=== PATIENT | female | born 1945 | race Caucasian/White ===

== ENCOUNTER → 2018-09-11 | Outpatient (CLI) | payer MEDICARE, BC ==
[~2018-09-11] MED LIST: CAR6.25 PO; CELE-1 PO; EXEN2VIA SQ; LOSA100T69 PO; METF-452 PO; OLME1TAB63 PO; POTA20TA85 PO; ROSU5TAB8 PO
--- NOTE | 2018-09-11 17:23 | RADIOLOGY IMAGING REPORT ---
FACILITY: [facility] - [place] PATIENT NAME: LITO CONRAD : [id number] MR: [id number] V: [id number] EXAM DATE: [id number] ORDERING PHYSICIAN: LEYDA CAMPBELL TECHNOLOGIST: Rosette Jiménez PROCEDURE:BILATERAL DIGITAL SCREENING MAMMOGRAM WITH CAD ASSISTED INTERPRETATION & 3D TOMOSYNTHESIS COMPARISON:Prior mammograms dated 11/24/14, 11/18/13, 08/15/12 INDICATIONS:SCREENING FINDINGS: A small amount of fibroglandular tissue is seen throughout the breasts. In the approximate 12 o'clock position of the Left breast junction of the middle & posterior third there is a focal area of increased density with small microcalcifications. It appears more prominent when compared to the prior studies. Spot magnification view recommended for further evaluation. DIAGNOSTIC CATEGORY 0--INCOMPLETE: NEED ADDITIONAL IMAGING EVALUATION. RECOMMENDATIONS: ADDITIONAL MAMMOGRAPHIC VIEWS REQUIRED: LEFT BREAST. Additional views of the Left breast recommended as described. IMPRESSION: BIRADS 0: Incomplete, need additional imaging. Dictated by: Juani Honeycutt M.D. on 09/11/2018 at 9:13 Transcribed by: RAGHAV on 09/11/2018 at 9:38 Approved by: Juani Honeycutt M.D. on 09/11/2018 at 17:22 [facility]
== END ==
LOC: MAMO 01:22
PROVIDERS: ATTEND Family Medicine
DX: R92.2 Inconclusive mammogram (principal)
CPT/HCPCS: 77063; 77067

== ENCOUNTER → 2018-09-19 | Outpatient (CLI) | payer MEDICARE, BC ==
[~2018-09-19] MED LIST changes: +LIDOCAINE MPF 1% 5 ML VIAL ONE
--- NOTE | 2018-09-19 16:01 | RADIOLOGY IMAGING REPORT ---
FACILITY: [facility] - [place] PATIENT NAME: LITO CONRAD : [id number] MR: [id number] V: [id number] EXAM DATE: [id number] ORDERING PHYSICIAN: LEYDA CAMPBELL TECHNOLOGIST: Rosette Jiménez PROCEDURE:LEFT DIGITAL DIAGNOSTIC MAMMOGRAM WITH CAD ASSISTED INTERPRETATION & 3D TOMOSYNTHESIS COMPARISON:Prior mammograms 09/11/18, 11/24/14, 10/19/13, 08/15/12. INDICATIONS:FURTHER EVAL FINDINGS: The patient returned for Spot magnification views in the Left CC & MLO projections. The focal area of increased density with small microcalcifications is really identified in the 12 o'clock position. Today's Left breast Ultrasound demonstrated a 6.9 x 8.5 x 4.9mm ovoid hypoechoic mass with internal calcifications in the 12:30 position of the Left breast which would account for this finding. Ultrasound guided core biopsy is recommended. DIAGNOSTIC CATEGORY 4--SUSPICIOUS FOR MALIGNANCY. RECOMMENDATIONS: ULTRASOUND-GUIDED CORE BIOPSY: LEFT BREAST. IMPRESSION: BIRADS 4: Suspicious for malignancy. Ultrasound guided core biopsy of the hypoechoic nodule with internal calcifications in the 12:30 position of the Left breast is recommended. Dictated by: Juani Honeycutt M.D. on 09/19/2018 at 15:02 Transcribed by: FIX on 09/19/2018 at 15:19 Approved by: Juani Honeycutt M.D. on 09/19/2018 at 16:00 [facility]
--- NOTE | 2018-09-19 16:01 | RADIOLOGY IMAGING REPORT ---
FACILITY: [facility] PATIENT NAME: LITO CONRAD : [id number] MR: [id number] V: [id number] EXAM DATE: [id number] ORDERING PHYSICIAN: LEYDA CAMPBELL TECHNOLOGIST: Aly Galloway RDMS, SUDHA PROCEDURE:US LEFT BREAST COMPARISON:Today's mammogram. INDICATIONS:FURTHER EVAL FINDINGS: In the 12:30 position of the Left breast there is an ovoid hypoechoic nodule measuring approximately 6.9 x 8.5 x 4.9mm with internal calcifications. This accounts for the recent mammographic findings. Ultrasound guided core biopsy is recommended. DIAGNOSTIC CATEGORY 4--SUSPICIOUS FOR MALIGNANCY. RECOMMENDATIONS: ULTRASOUND-GUIDED CORE BIOPSY: LEFT BREAST. IMPRESSION: BIRADS 4: Suspicious for malignancy. Ultrasound guided core biopsy of the hypoechoic nodule with internal calcifications in the 12:30 position of the Left breast is recommended. Dictated by: Juani Honeycutt M.D. on 09/19/2018 at 15:03 Transcribed by: FIX on 09/19/2018 at 15:26 Approved by: Juani Honeycutt M.D. on 09/19/2018 at 16:00 [facility]
[2018-09-19 16:44] LABS: INR 0.96
== END ==
LOC: MAMO 03:31
PROVIDERS: ATTEND Family Medicine
DX: R92.2 Inconclusive mammogram (principal)
CPT/HCPCS: 36415; 77061; 77065; 85610

== ENCOUNTER → 2018-09-22 | Outpatient (CLI) | payer MEDICARE, BC ==
[~2018-09-22] MED LIST changes: -LIDOCAINE MPF 1% 5 ML VIAL ONE
--- NOTE | 2018-09-23 08:11 | RADIOLOGY IMAGING REPORT ---
FACILITY: [facility] - [place] PATIENT NAME: LITO CONRAD : [id number] MR: [id number] V: [id number] EXAM DATE: [id number] ORDERING PHYSICIAN: LEYDA CAMPBELL TECHNOLOGIST: Aly Galloway RDMS, RDINDIA PROCEDURE: BIOPSY LEFT BREAST COMPARISON: None. INDICATIONS: Hypoechoic mass 12:30 position of the Left breast and abnormal mammogram. FINDINGS: Informed consent was obtained. The patient's Left breast was prepped and draped in the usual sterile fashion. Local anesthesia was accomplished with 1% lidocaine. Utilizing sonographic guidance (3) 12 Gauge core biopsies were obtained through the ovoid hypoechoic mass in the 12:30 position of the Left breast. The samples were placed in formalin and sent to the laboratory for evaluation. A biopsy clip was placed in the biopsy site. The post biopsy mammogram again demonstrated the ovoid area of increased density with microcalcifications in the approximate 12 o'clock of the Left breast however the biopsy clip does not correlate with these calcifications therefore biopsy is recommended. Sense these calcifications are so far posterior surgical excision coordinated with mammographically guided hook wire placement is recommended. DIAGNOSTIC CATEGORY 4--SUSPICIOUS FOR MALIGNANCY. RECOMMENDATIONS: SURGICAL BIOPSY COORDINATED WITH MAMMOGRAM HOOKWIRE LOCALIZATION: LEFT BREAST. IMPRESSION: BIRADS 4: Suspicious for malignancy. 1. Successful ultrasound guided biopsy of the ovoid mass in the 12:30 position of the Left breast. The post biopsy mammogram however demonstrated the post biopsy clip to be located in a different location from the previously noted microcalcifications in the 12 o'clock position of the Left breast. Therefore the sonographic findings did not correlate with the mammographic findings. Surgical excision of the microcalcifications coordinated with mammographically guided hook wire localization is recommended. 2. These findings were discussed with the patient following her biopsy today. Dictated by: Juani Honeycutt M.D. on 09/22/2018 at 15:26 Transcribed by: SEVEN on 09/22/2018 at 15:55 Approved by: Juani Honeycutt M.D. on 09/23/2018 at 8:09 [facility]
--- NOTE | 2018-09-23 08:11 | RADIOLOGY IMAGING REPORT ---
FACILITY: [facility] PATIENT NAME: LITO CONRAD : [id number] MR: [id number] V: [id number] EXAM DATE: [id number] ORDERING PHYSICIAN: LEYDA CAMPBELL TECHNOLOGIST: Aly Galloway RDMS, RDINDIA PROCEDURE: BIOPSY LEFT BREAST COMPARISON: None. INDICATIONS: Hypoechoic mass 12:30 position of the Left breast and abnormal mammogram. FINDINGS: Informed consent was obtained. The patient's Left breast was prepped and draped in the usual sterile fashion. Local anesthesia was accomplished with 1% lidocaine. Utilizing sonographic guidance (3) 12 Gauge core biopsies were obtained through the ovoid hypoechoic mass in the 12:30 position of the Left breast. The samples were placed in formalin and sent to the laboratory for evaluation. A biopsy clip was placed in the biopsy site. The post biopsy mammogram again demonstrated the ovoid area of increased density with microcalcifications in the approximate 12 o'clock of the Left breast however the biopsy clip does not correlate with these calcifications therefore biopsy is recommended. Sense these calcifications are so far posterior surgical excision coordinated with mammographically guided hook wire placement is recommended. DIAGNOSTIC CATEGORY 4--SUSPICIOUS FOR MALIGNANCY. RECOMMENDATIONS: SURGICAL BIOPSY COORDINATED WITH MAMMOGRAM HOOKWIRE LOCALIZATION: LEFT BREAST. IMPRESSION: BIRADS 4: Suspicious for malignancy. 1. Successful ultrasound guided biopsy of the ovoid mass in the 12:30 position of the Left breast. The post biopsy mammogram however demonstrated the post biopsy clip to be located in a different location from the previously noted microcalcifications in the 12 o'clock position of the Left breast. Therefore the sonographic findings did not correlate with the mammographic findings. Surgical excision of the microcalcifications coordinated with mammographically guided hook wire localization is recommended. 2. These findings were discussed with the patient following her biopsy today. Dictated by: Juani Honeycutt M.D. on 09/22/2018 at 15:26 Transcribed by: SEVEN on 09/22/2018 at 15:55 Approved by: Juani Honeycutt M.D. on 09/23/2018 at 8:09 [facility]
== END ==
LOC: MAMO 01:13
PROVIDERS: ATTEND Family Medicine
DX: N63.22 Unspecified lump in the left breast, upper inner quadrant (principal); R92.1 Mammographic calcification found on diagnostic imaging of breast; N64.1 Fat necrosis of breast
CPT/HCPCS: 19083; 88305; 88344; J2001; 77061; 77065

== ENCOUNTER → 2018-10-21 | Outpatient (CLI) | payer MEDICARE, BC ==
[~2018-10-21] MED LIST changes: +LOSA-57 PO
--- NOTE | 2018-10-22 10:52 | EKG ---
FACILITY: [facility] PATIENT NAME: LITO CONRAD : [id number] MR: [id number] V: [id number] EXAM DATE: ORDERING PHYSICIAN: LEYDA SANTANA TECHNOLOGIST: ELIANA Test Reason : PRE-OP Blood Pressure : / mmHG Vent. Rate : 063 BPM Atrial Rate : 063 BPM P-R Int : 176 ms QRS Dur : 082 ms QT Int : 420 ms P-R-T Axes : 054 055 065 degrees QTc Int : 429 ms Normal sinus rhythm Normal ECG When compared with ECG of 06-JUL-2014 17:29, No significant change was found Referred By: ESTHER Confirmed By:
== END ==
LOC: LAB 17:12
PROVIDERS: ATTEND Surgery
DX: E11.9 Type 2 diabetes mellitus without complications (principal)
CPT/HCPCS: 36415; 82310; 82374; 82435; 82565; 82947; 83036; 84132; 84295; 84520

== ENCOUNTER 2018-11-06 03:09 | Day surgery (SDC) | payer MEDICARE, BC ==
[~2018-11-06] VITALS: Ht 170.2 cm; Wt 82.6 kg
[~2018-11-06 03:09] MED LIST changes: +CARV12.578 PO; -LOSA100T69 PO; +LOSA100T75 PO
[2018-11-06] MEDS ORDERED: ONDANSETRON 4 MG/2 ML VIAL ONE (11:13)
[2018-11-06] MEDS ORDERED: LIDOCAINE MPF 1% 5 ML VIAL ONE (11:13)
[2018-11-06] MEDS ORDERED: PROPOFOL EMUL(*) 10MG/ML 20 ML 20 ML ONE ×2 (11:13→13:39)
[2018-11-06] MEDS ORDERED: fentaNYL CITR 100 MCG/2 ML AMP ONE (11:13)
[2018-11-06 11:22] VITALS: BP 153/90
[2018-11-06] MEDS ORDERED: PROPOFOL EMUL(*) 10MG/ML 20 ML 40 ML ONE (11:28)
[2018-11-06] MEDS ORDERED: ceFAZolin(*) 2GM/D5W 50ML 50 ML IVPB ONE (12:15)
[2018-11-06] MEDS ORDERED: DEXAMETHASONE SOD 4 MG/ML VIAL ONE (12:46)
[2018-11-06] MEDS ORDERED: ROPIVACAINE 0.5% 20 ML VIAL ONE (13:09)
[2018-11-06] MEDS ORDERED: LIDOCAINE/SOD BICARB 8.4% SYR ID ONE (13:10)
[2018-11-06] MEDS ORDERED: MIDAZOLAM 2 MG/2 ML VIAL IVP PRN (13:10)
[2018-11-06] MEDS ORDERED: FAMOTIDINE 20 MG TAB PO ONE (13:10)
[2018-11-06] MEDS ORDERED: NORMOSOL R SOLN(*) 1000 ML BAG 1,000 ML IV PRN (13:20)
[2018-11-06] MEDS ORDERED: DOCU-416 PO (14:06)
[2018-11-06] MEDS ORDERED: OXYC-854 PO (14:06)
--- NOTE | 2018-11-06 14:08 | Short(Outpt) Discharge Summary ---
Discharge Summary Reason for Hosp/Final Diag: (1) Microcalcification of left breast on mammogram Status: Chronic Hospital Course & Plan: Left breast, wire-guided, lesion excision completed without problems. Departure Discharge to: Home, Self Care Discharge Instructions Home Meds Active Scripts Docusate Sodium (COLACE) 100 Mg Capsule, 1 CAP PO DAILY, #30 CAP 0 Refills TAKE WITH A FULL GLASS OF WATER Prov:LEYDA SANTANA MD 11/06/18 Oxycodone Hcl/Acet 5/325 Mg (ENDOCET 5-325 TABLET) 1 Each Tablet, 1 TAB PO Q4H PRN for PAIN, #20 TAB 0 Refills Prov:LEYDA SANTANA MD 11/06/18 Reported Medications Carvedilol (CARVEDILOL) 12.5 Mg Tablet, 12.5 MG PO BID, #10 TAB 10/23/18 Exenatide Microspheres (BYDUREON) 2 Mg Vial, 2 MG SQ Q7DAY, VIAL 10/21/18 Losartan/Hydrochlorothiazide (LOSARTAN-HCTZ 100-12.5 MG TAB) 1 Each Tablet, 1 EACH PO QDAY 10/21/18 Celecoxib (CELEBREX) 200 Mg Capsule, 200 MG PO QDAY PRN for PAIN, CAPSULE 09/24/17 Metformin Hcl (METFORMIN HCL) 1,000 Mg Tablet, 1 TAB PO BID TAKE ONE TABLET BY MOUTH TWO TIMES A DAY 07/06/14 Rosuvastatin Calcium (CRESTOR) 5 Mg Tablet, 5 MG PO QDAY 07/06/14 Follow up Referrals: General Surgery - 11/26/18 @ Surgery, General with LEYDA SANTANA MD You have a follow up appointment scheduled with Dr. Santana on 11/26/18, at 4:00pm. Diet: Regular Activity: As Tolerated Special Instructions: You may remove the white surgical dressing on 11/08/18, then you can shower. After showering, leave the incision open to air but leave the steristrips in place until they fall off on their own. Do not immerse the incision for 2 weeks. LEYDA SANTANA MD Nov 06, 2018 14:08
--- NOTE | 2018-11-06 14:13 | Post Operative Progress Note ---
Post Operative Progress Note Date: Nov 06, 2018 Time: 14:08 Surgeon: Len Dictation number: [id number] Anesthesia: LMA by Dr. Dubose Pre-Op Diagnosis: Left breast microcalcifications on mammogram Post-Op Diagnosis: GERARDO Findings: Microcalcifications seen in middle of specimen on specimen mammogram Procedure(s): Wire guided excision of left breast lesion Specimen Removed:(May be N/A): Left breast lesion Complications: None Fluids: See anesthesia record Estimated Blood Loss: Minimal Date OP Note Dictated: Nov 06, 2018 Time OP Note Dictated: 14:10 LEYDA SANTANA MD Nov 06, 2018 14:13
[2018-11-06 14:52] VITALS: BP 155/88
--- NOTE | 2018-11-06 14:57 | OPERATIVE REPORT 1 ---
EVENT DATE: November 06, 2018 SURGEON: Alan Harrington MD ANESTHESIOLOGIST: Primo Dubose MD ANESTHESIA: LMA PREOPERATIVE DIAGNOSIS Left breast microcalcification seen on mammogram. POSTOPERATIVE DIAGNOSIS Left breast microcalcification seen on mammogram. PROCEDURE PERFORMED Wire-guided excision of left breast lesion. COMPLICATIONS None. CONDITION Stable. BLOOD LOSS Minimal. INDICATIONS This is a 73-year-old female who was referred to me after a recent mammogram revealed some suspicious microcalcifications in the upper portion of her left breast at about 12 o'clock. These were fairly posterior and not amenable to stereotactic or ultrasound-guided biopsy. She was recommended for wire-guided excisional biopsy to determine if these represent a neoplasm or are benign. DESCRIPTION OF PROCEDURE The patient had gone to Radiology and had a wire placed preoperatively. I reviewed these images with the radiologist, and then the patient was brought to the operating room and placed supine on the operating table. LMA anesthesia was administered, and left breast was prepped and draped in a sterile fashion. A timeout was completed, and I marked the skin in the upper-outer quadrant of her left breast approximating where the lesion would be deep to, and I anesthetized the skin with 0.5% ropivacaine plain. I made an incision in the skin and dissected down through the dermis into the subcutaneous fat and then skewed my dissection toward the wire until I identified the wire and then pulled it into the wound. I then continued my dissection along the wire and then flared it out proximal to where the lesion is thought to be and then continue dissecting a cylinder of tissue around the wire all the way past the tip of the wire, and then the specimen was removed from the wound. I placed it on a grid and then brought it to mammography. I personally walked it over there, and we shot two images in 90 degrees from each other and could see the calcifications in the specimen adjacent to the wire, and it was in the middle of the specimen. I then went back to operating room, irrigated and dried the wound, closed the pocket with running 3-0 Vicryl sutures in two layers, and then the skin was closed with 4-0 Monocryl running subcuticular suture. Skin was cleaned and dried, and Steri-Strips were applied, followed by sterile surgical dressing. The patient was awakened, extubated in the operating room, and transported to the recovery room in stable condition having tolerated the procedure without any apparent problems. JENNY
[2018-11-06 15:26] VITALS: BP 160/82
[2018-11-06 15:29] VITALS: BP 161/78
== END 2018-11-06 14:52 | disposition home or self-care (01) ==
LOC: OR 03:09
PROVIDERS: ATTEND Surgery
DX: R92.0 Mammographic microcalcification found on diagnostic imaging of breast (principal); E11.9 Type 2 diabetes mellitus without complications; I10 Essential (primary) hypertension; Z79.84 Long term (current) use of oral hypoglycemic drugs
CPT/HCPCS: 19125; 19283; 36416; 82948; 88305; 88344; A9270; J1100; J2001; J2405; J2704; J2795; J3010; J0690

== ENCOUNTER 2018-12-04 13:59 | Outpatient (RCR) | payer MEDICARE, BC ==
[~2018-12-04 13:59] MED LIST changes: +DOCU-416 PO; +OXYC-854 PO
[2018-12-04 14:00] VITALS: BP 129/78
--- NOTE | 2018-12-05 03:22 | [facility] ONCOLOGY NOTE ---
EVENT DATE: December 04, 2018 REFERRING PHYSICIAN Alan Harrington MD PRIMARY CARE PROVIDER Alan Benitez MD REASON FOR CONSULTATION Evaluation and management of left breast DCIS. ONCOLOGY HISTORY Patient is a 73-year-old postmenopausal female who had an abnormal screening bilateral mammogram done on 11 September 2018, which showed increased density with small microcalcifications at 12 o'clock. On 19 September 2018, she had left diagnostic mammogram, which showed an abnormal area at 12 o'clock, so she had an ultrasound which showed an 8.5 mm hypoechoic mass with internal calcifications. On 22 September 2018, patient had ultrasonographic-guided biopsy of the left breast mass, but the pathology came back negative for malignancy. On 06 November 2018, patient had left breast wire localization lumpectomy, and pathology came back positive for DCIS with comedonecrosis, 2 mm in size, with negative microinvasion and negative margins. ER 86.8%, NV 89.6%. HER2/kiara was 2+. Ki-67 was 9.3%. PAST MEDICAL HISTORY 1. Osteoarthritis. 2. Type 2 diabetes. 3. Hypertension. 4. Hyperlipidemia. 5. Superficial thrombophlebitis x2. PAST SURGICAL HISTORY 1. Removal of bone spur from her right toe. 2. Tubal ligation. 3. Hysterectomy, but ovaries are intact. 4. Arthroscopic left knee surgery. 5. Right trigger thumb release. 6. Stem cell treatment for her arthritis. FAMILY HISTORY She has maternal aunts, cousins, and uncles with different types of cancer. Patient does not remember exactly everything. SOCIAL HISTORY Patient is with three children. 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 She is a never-smoker. She has one to two drinks per month, denies any abuse of illicit drugs. CURRENT MEDICATIONS 1. Carvedilol 12.5 mg twice daily. 2. Exenatide microspheres 2 mg every seven days. 3. Losartan/hydrochlorothiazide 100/12.5 mg tablet daily. 4. Celebrex 200 mg as needed for pain. 5. Metformin 1000 mg twice daily. 6. Crestor 5 mg daily. ALLERGIES SULFA TOPICALLY, which causes skin reaction. REVIEW OF SYSTEMS CONSTITUTIONAL: No appetite or weight change. No fever, chills or sweating. No recent infection. HEENT: Ears: No tinnitus or hearing problem. Nose: She has nasal allergies with runny nose. Throat: No sore throat or mouth ulcers. Eyes: No diplopia or visual changes. RESPIRATORY: No shortness of breath. No cough, expectoration or hemoptysis. CARDIOVASCULAR: No chest pain, orthopnea, or paroxysmal nocturnal dyspnea (PND). No edema. No palpitations. GASTROINTESTINAL: No nausea or vomiting. No diarrhea or constipation. No change in bowel movements. No heartburn or swallowing difficulties. No abdominal pain. No jaundice. No hematemesis, melena or rectal bleeding. GENITOURINARY: No hematuria or dysuria. MUSCULOSKELETAL: She has pain, especially in the knees and thumbs. NEUROLOGICAL: She has numbness in her thumbs. HEMATOLOGIC/LYMPHATIC: No bleeding or easy bruising. No weakness or fatigue. No enlarged lymph nodes. SKIN: No skin rash or lumps. PSYCHIATRIC: No anxiety or depression. PHYSICAL EXAMINATION GENERAL: Looks stable. Well-developed, well-nourished, and in no acute distress. VITAL SIGNS: Blood pressure 129/78, pulse 71 per minute, respirations 16 per minute, temperature 97, pulse oximetry 93% on room air. HEENT: Head: Atraumatic. No sinus tenderness to palpation. Eyes: No icterus or conjunctivitis. Mouth and throat: No oral thrush or mucositis. NECK: Supple. No cervical or supraclavicular lymphadenopathy. LUNGS: Clear to auscultation and percussion bilaterally. HEART: Regular rate and rhythm. No gallops, murmurs, clicks or rubs. ABDOMEN: Soft and lax. No tenderness. No hepatosplenomegaly. No masses. EXTREMITIES: No cyanosis, clubbing or edema. LYMPHATICS: No peripheral lymphadenopathy. NEUROLOGICAL: Conscious, alert and oriented times three. No focal motor or sensory deficits. PSYCHIATRIC: Mood and affect appear normal. SKIN: No skin rash, bruise or purpuric eruption. ASSESSMENT Ductal carcinoma in situ of the left breast, status post wire-localization lumpectomy done on 06 November 2018, and the pathology came back positive for 2 mm ductal carcinoma in situ with comedonecrosis, no microinvasion, and negative margins. ER 86.8%, NV 89.6%, HER2/kiara 2+, Ki-67 9.3%. I had a long discussion with the patient regarding further management. I talked to her about the role of adjuvant radiation therapy. As her ductal carcinoma in situ is positive for ER and NV receptors, I am planning to treat her with tamoxifen for five years, but because of her thrombophlebitis twice in the past, I am afraid patient could have an underlying hypercoagulable state and this would actually increase the risk of blood clotting with tamoxifen. I gave her also the option of treatment with Aromasin for five years, but this actually will cause worsening of osteoporosis or osteopenia if she has any. Patient is keen to go towards the Aromasin rather than tamoxifen. I am planning to see her after she finishes her radiation therapy with CBC, chemistry panel, vitamin D level, and DEXA scan, and will decide at that time about the treatment. Patient is aware treatment will be for five years, and she is aware also of the side effects of both drugs. PLAN 1. Continue followup. 2. Patient to return after the end of her radiation therapy with CBC, chem panel, 25-hydroxyvitamin D, and DEXA scan. 3. Patient to contact us for any new concerns or complaints. JENNY
== END 2019-01-21 07:10 | disposition home or self-care (01) ==
LOC: ONC 13:59
PROVIDERS: ATTEND Internal Medicine Hematology
DX: D05.12 Intraductal carcinoma in situ of left breast (principal); N95.2 Postmenopausal atrophic vaginitis; E11.9 Type 2 diabetes mellitus without complications; I10 Essential (primary) hypertension; Z17.0 Estrogen receptor positive status [ER+]; E78.5 Hyperlipidemia, unspecified; M19.90 Unspecified osteoarthritis, unspecified site
CPT/HCPCS: 99202

== ENCOUNTER 2019-01-15 10:00 | Outpatient (RCR) | payer MEDICARE, BC ==
--- NOTE | 2018-12-06 02:05 | ONCOLOGY CONSULTATION ---
EVENT DATE: December 06, 2018 REFERRING PHYSICIAN Alan Harrington M.D. DIAGNOSIS Left breast ductal carcinoma in situ. CHIEF COMPLAINT Discussion of breast radiotherapy. HISTORY OF PRESENT ILLNESS The patient is a 73-year-old female who was diagnosed with a left breast ductal carcinoma in situ after a routine screening mammogram on September 11, 2018, showed an increased density with small microcalcifications at the 12 o'clock position of the left breast, which was incomplete. Further mammographic imaging with spot compressions and mag views showed suspicious microcalcifications in this location, which was read as BI-RADS 4. This area was felt to be too deep to easily undergo stereotactic core biopsy and as such the patient was referred to Dr. Harrington, who performed a needle localized lumpectomy on her area of suspicious microcalcifications on November 06, 2018. The lumpectomy specimen revealed a 2 mm area of ductal carcinoma in situ with comedonecrosis. The margins were negative with the closet margin at 5 mm. The tumor was ER positive, 86.8% NC positive, 89.6% HER2 kiara 2+. The patient has met with Dr. Petty and discussed adjuvant endocrine therapy. She presents today to discuss definitive radiotherapy. PAST MEDICAL HISTORY 1. Left breast DCIS, see above. 2. Hypertension. 3. Type 2 diabetes. CURRENT MEDICATIONS 1. Docusate. 2. Oxycodone. 3. Carvedilol. 4. Xanatin. 5. Losartan. 6. Hydrochlorothiazide. 7. Celecoxib. 8. Metformin. 9. Rosuvastatin. ALLERGIES SULFA. FAMILY HISTORY Noncontributory. SOCIAL HISTORY No new data. PHYSICAL EXAMINATION VITAL SIGNS: Temperature 97.1, pulse 67, blood pressure 130/78, respiratory rate 16, O2 saturation 95% on room air. CONSTITUTIONAL: The patient is sitting comfortably in the chair, no acute distress. HEENT: Pupils are equal, round and reactive to light and accommodation. Extraocular movements are intact. There are no lesions of the oropharynx. NECK: Supple. Trachea is midline. LYMPHATICS: No palpable supraclavicular lymphadenopathy bilaterally. LUNGS: Clear to auscultation and percussion bilaterally. CARDIOVASCULAR: Regular rate and rhythm.. Normal S1 and S2. No murmurs, rubs or gallops. ABDOMEN: Soft, nontender with active bowel sounds. No hepatosplenomegaly. EXTREMITIES; No edema, clubbing or cyanosis. NEUROLOGIC: Patient is alert and oriented x3. Gait is normal. BREAST: Symmetric breasts with excellent cosmesis. The patient has a well- healed lumpectomy incision in the upper central portion of her left breast. There is no granulation tissue. The patient has no dominant breast masses bilaterally. PERFORMANCE STATUS: 90%. IMPRESSION The patient is a 73-year-old woman with a left breast ductal carcinoma in situ measuring 2 mm in size, status post wide local excision with negative margins. The patient presents today for discussion of breast radiotherapy. PLAN The patient was apprised of the standard of care for treatment of DCIS, which does include lumpectomy followed by whole breast radiotherapy. Whole breast radiotherapy has been shown to decrease tumor recurrence by approximately 75%. The side effect profile of radiotherapy was discussed at length with the patient. We additionally discussed various radiotherapy schedules including Italian fractionation. As the patient has travel plans in December, we will plan to proceed with Italian fractionation with 16 fractions to the whole breast followed by 3 fraction boost to the biopsy cavity. The patient has signed a written informed consent to undergo this treatment. She will undergo a CT scan today for planning simulation purposes. [facility]
--- NOTE | 2018-12-06 02:12 | PURVIANCE CONSULTATION ---
EVENT DATE: December 05, 2018 REFERRING PHYSICIAN Alan Harrington M.D. DIAGNOSIS Left breast ductal carcinoma in situ. CHIEF COMPLAINT Discussion of breast radiotherapy. HISTORY OF PRESENT ILLNESS The patient is a 73-year-old female who was diagnosed with a left breast ductal carcinoma in situ after a routine screening mammogram on September 11, 2018, showed an increased density with small microcalcifications at the 12 o'clock position of the left breast, which was incomplete. Further mammographic imaging with spot compressions and mag views showed suspicious microcalcifications in this location, which was read as BI-RADS 4. This area was felt to be too deep to easily undergo stereotactic core biopsy and as such the patient was referred to Dr. Harrington, who performed a needle localized lumpectomy on her area of suspicious microcalcifications on November 06, 2018. The lumpectomy specimen revealed a 2 mm area of ductal carcinoma in situ with comedonecrosis. The margins were negative with the closet margin at 5 mm. The tumor was ER positive, 86.8% GA positive, 89.6% HER2 kiara 2+. The patient has met with Dr. Petty and discussed adjuvant endocrine therapy. She presents today to discuss definitive radiotherapy. PAST MEDICAL HISTORY 1. Left breast DCIS, see above. 2. Hypertension. 3. Type 2 diabetes. CURRENT MEDICATIONS 1. Docusate. 2. Oxycodone. 3. Carvedilol. 4. Xanatin. 5. Losartan. 6. Hydrochlorothiazide. 7. Celecoxib. 8. Metformin. 9. Rosuvastatin. ALLERGIES SULFA. FAMILY HISTORY Noncontributory. SOCIAL HISTORY No new data. PHYSICAL EXAMINATION VITAL SIGNS: Temperature 97.1, pulse 67, blood pressure 130/78, respiratory rate 16, O2 saturation 95% on room air. CONSTITUTIONAL AND GENERAL APPEARANCE: The patient is sitting comfortably in the chair, no acute distress. HEENT: Pupils are equal, round and reactive to light and accommodation. Extraocular movements are intact. There are no lesions of the oropharynx. NECK: Supple. Trachea is midline. LYMPHATICS: No palpable supraclavicular lymphadenopathy bilaterally. LUNGS: Clear to auscultation and percussion bilaterally. CARDIOVASCULAR: Regular rate and rhythm.. Normal S1 and S2. No murmurs, rubs or gallops. ABDOMEN: Soft, nontender with active bowel sounds. No hepatosplenomegaly. EXTREMITIES; No edema, clubbing or cyanosis. NEUROLOGIC: Patient is alert and oriented x3. Gait is normal. BREAST: Symmetric breasts with excellent cosmesis. The patient has a well- healed lumpectomy incision in the upper central portion of her left breast. There is no granulation tissue. The patient has no dominant breast masses bilaterally. PERFORMANCE STATUS: 90%. IMPRESSION The patient is a 73-year-old woman with a left breast ductal carcinoma in situ measuring 2 mm in size, status post wide local excision with negative margins. The patient presents today for discussion of breast radiotherapy. PLAN The patient was apprised of the standard of care for treatment of DCIS, which does include lumpectomy followed by whole breast radiotherapy. Whole breast radiotherapy has been shown to decrease tumor recurrence by approximately 75%. The side effect profile of radiotherapy was discussed at length with the patient. We additionally discussed various radiotherapy schedules including Israeli fractionation. As the patient has travel plans in December, we will plan to proceed with Israeli fractionation with 16 fractions to the whole breast followed by 3 fraction boost to the biopsy cavity. The patient has signed a written informed consent to undergo this treatment. She will undergo a CT scan today for planning simulation purposes. JENNY
== END 2019-03-05 ==
LOC: RAON 10:00
PROVIDERS: ATTEND Radiology Radiation Oncology
DX: Z51.0 Encounter for antineoplastic radiation therapy (principal); D05.12 Intraductal carcinoma in situ of left breast; E11.9 Type 2 diabetes mellitus without complications; I10 Essential (primary) hypertension
CPT/HCPCS: 77280; 77290; 77295; 77300; 77334; 77336; 77412

== ENCOUNTER → 2019-04-29 | Outpatient (CLI) | payer MEDICARE, BC ==
--- NOTE | 2019-04-30 08:25 | RADIOLOGY IMAGING REPORT ---
FACILITY: [facility] PATIENT NAME: LITO CONRAD : [id number] MR: [id number]: [id number] EXAM DATE: ORDERING PHYSICIAN: SIOMARA MILNER TECHNOLOGIST: Heather Johnston PROCEDURE:LEFT DIGITAL MAMMOGRAM DIAGNOSTIC WITH CAD ASSISTED INTERPRETATION & 3D TOMOSYNTHESIS REASON FOR STUDY: Prior history of Left breast cancer follow-up. FAMILY HISTORY OF BREAST CANCER: Maternal aunt, maternal cousin times 2 and self. BREAST PROCEDURES/TREATMENTS: Ultrasound guided biopsy of the Left breast and malignant surgical biopsy of the Left breast in 2018. She did have radiation therapy. COMPARISON STUDIES: 09/11/18, 11/24/14. VIEWS OBTAINED: Left 2D & 3D full field CC & MLO projections. BREAST DENSITY: There are scattered areas of fibroglandular density throughout the breasts. MAMMOGRAM FINDINGS: There is a surgical clip in the upper outer quadrant of the Left breast in the middle depth. There is skin thickening from history of radiation therapy. There is an area of postsurgical scaring in the posterior depth deep central Left breast from prior lumpectomy. The parenchymal pattern has otherwise remained stable allowing for difference in mammographic technique & patient positioning. DIAGNOSTIC CATEGORY 2--BENIGN FINDING. RECOMMENDATIONS: ROUTINE MAMMOGRAM AND CLINICAL EVALUATION. IMPRESSION: BIRADS 2: Benign finding. Dictated by: Juani Honeycutt M.D. on 04/29/2019 at 16:47 Transcribed by: SEVEN on 04/30/2019 at 8:23 Approved by: Juani Honeycutt M.D. on 04/30/2019 at 8:24 [facility]
== END ==
LOC: MAMO 00:56
PROVIDERS: ATTEND Nurse Practitioner
DX: D05.12 Intraductal carcinoma in situ of left breast (principal)
CPT/HCPCS: 77061; 77065

== ENCOUNTER 2019-05-05 09:21 | Outpatient (RCR) | payer MEDICARE, BC ==
[2019-05-05 09:27] VITALS: BP 134/84
--- NOTE | 2019-05-05 11:25 | ONCOLOGY FOLLOW UP NOTE ---
EVENT DATE: May 05, 2019 CHIEF COMPLAINT/REASON FOR VISIT Left breast ductal carcinoma in situ, status post lumpectomy and radiation therapy. Patient is seen for initial oncology surveillance appointment and radiographic review. Patient elected not to take tamoxifen or AI but has undergone discussion with Dr. Petty regarding pros and cons. ONCOLOGY HISTORY 1. Carcinoma in situ, left breast, status post lumpectomy, December 04, 2018. 2. External beam radiation therapy. Patient receiving 4256 cGy in 16 fractions from December 22, 2018 to January 13, 2019 for fraction electron boost. An additional 800 cGy in 4 fractions to combined dose of 5,056 cGy. Patient was initiated on December 22, 2018 and completed on January 19, 2019. HISTORY OF PRESENT ILLNESS Patient was seen back in the Oncology Clinic for followup appointment today. Currently, patient is doing well. Denies any significant breast pain. She does have some tenderness at times in the upper outer quadrant of the left breast and I told her that was not to be unexpected due to the size of the breasts and the fact that this was accelerated fractionation with less tissue density at that location as well. She does have some minor residual tenderness and it is expected to resolve over the next 3 to 12 months completely. Prior to this appointment, patient had a baseline post-treatment mammogram, which I reviewed on the computer monitor and was unremarkable. Patient recently returned from a trip to [facility]. She will followup with Dr. Benitez shortly regarding her type 2 diabetes. PAST MEDICAL HISTORY 1. Osteoarthritis. 2. Type 2 diabetes. 3. Hypertension. 4. Hyperlipidemia. 5. Superficial thrombophlebitis x2. PAST SURGICAL HISTORY 1. Removal of bone spur from her right toe. 2. Tubal ligation. 3. Hysterectomy, but ovaries are intact. 4. Arthroscopic left knee surgery. 5. Right trigger thumb release. 6. Stem cell treatment for her arthritis. FAMILY HISTORY She has maternal aunts, cousins, and uncles with different types of cancer. Patient does not remember exactly everything. SOCIAL HISTORY Patient is with three children. 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 She is a never-smoker. She has one to two drinks per month, denies any abuse of illicit drugs. CURRENT MEDICATIONS 1. Carvedilol 12.5 mg twice daily. 2. Exenatide microspheres 2 mg every seven days. 3. Losartan/hydrochlorothiazide 100/12.5 mg tablet daily. 4. Celebrex 200 mg as needed for pain. 5. Metformin 1000 mg twice daily. 6. Crestor 5 mg daily. ALLERGIES SULFA TOPICALLY, which causes skin reaction. REVIEW OF SYSTEMS Notable for joint pain, stiffness, occasional muscle discomfort, neuropathy, some minor swelling in the feet. Fatigue rated as 3. PHYSICAL EXAMINATION GENERAL: Pleasant 73-year old female. VITAL SIGNS: BP 134/84, pulse 56, respirations 16, O2 sat 95% on room air. Weight 201.6 pounds. HEENT: Unremarkable. LUNGS: Clear bilaterally. CARDIOVASCULAR: Heart sounds regular. No audible murmur. BREASTS: Careful palpation of right breast reveals no suspicious abnormalities. Left breast examination reveals no dominant mass. Excellent cosmetic result. Some minor residual tenderness in the upper outer quadrant of the left breast and minor tenderness on deep palpation, as expected at this juncture. ABDOMEN: Soft. No gross organomegaly, mass or tenderness. EXTREMITIES: No significant edema or cyanosis. NEUROLOGIC: Grossly intact. IMPRESSION/PLAN Patient clinically is doing well with no evidence of tumor recurrence from her treatment with lumpectomy and radiation therapy for ductal carcinoma in situ. Prognosis is excellent. I am having the patient work on some massage and some topical [id number] lidocaine for the upper outer quadrant of the breast and tenderness should resolve over the next three to six months on average. As stated above, the patient elected not to take tamoxifen as she has relatively low risk of tumor recurrence and does not want to take any additional medications unless she has to. She will follow up with Dr. Benitez regarding her type 2 diabetes as she has problems with Metformin and some of the other agents in terms of loose bowels. Patient is given a followup appointment to return to clinic in six months with bilateral mammograms, CBC and CMP. JENNY
== END 2019-05-25 13:51 | disposition home or self-care (01) ==
LOC: RAON 09:21
PROVIDERS: ATTEND Radiology Radiation Oncology
DX: Z85.3 Personal history of malignant neoplasm of breast (principal); Z92.3 Personal history of irradiation
CPT/HCPCS: 99212